=== PATIENT | female | born 1960 | race Caucasian/White ===

== ENCOUNTER 2020-11-19 14:27 | Outpatient (CLI) | payer BC | END 2020-11-19 23:59 | disposition home or self-care (01) | LOC: CARD DIAG 14:27 | PROVIDERS: ATTEND Student in an Organized Health Care Education/Training Program | DX: I35.1 Nonrheumatic aortic (valve) insufficiency (principal) | CPT/HCPCS: 93306 ==

== ENCOUNTER 2025-01-28 10:06 | Emergency (ER) | payer MEDICARE, MEDICAID ==
[~2025-01-28] VITALS: Ht 162.6 cm; Wt 75.0 kg
[2025-01-28 10:08] VITALS: BP 176/112; PULSE 77; RESP 16; O2SAT 98
--- NOTE | 2025-01-28 10:35 | RADIOLOGY REPORT ---
CLINICAL HISTORY: WRIST PAIN TECHNIQUE: 4 views of the right wrist were obtained. COMPARISON: None FINDINGS: There is mild linear sclerosis at the mid scaphoid bone. No soft tissue abnormality is evident. 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 IMPRESSION: Mild linear sclerosis at the mid scaphoid bone, which may represent a subacute fracture. Recommend fo llow-up radiographs in 7-10 days to reassess.
[2025-01-28] MEDS ORDERED: SULF1TAB49 PO (12:38)
--- NOTE | 2025-01-28 12:39 | Physician Documentation ---
History of Present Illness ~ Chief Complaint: Bite-animal Stated Complaint: DOG BITE Time Seen by MD: 12:10 Primary Medical Doctor: SCHOOLER Source: patient Mode of Arrival: POV Exam Limitations: no limitations HPI Patient was put yesterday by an unknown dog on the left and right thigh around 11:00 a.m.. Doc vaccination status is not up to date. Here for rabies treatment. Patient has a Muslim and refuses blood products. Tetanus within 5 years?: Yes Medication Reconciliation Allergies: Coded Allergies: Penicillins (Unverified Allergy, Unknown, 11/15/20) Scheduled Sulfamethoxazole/Trimethoprim (Bactrim Ds Tablet), 1 TAB PO Q12H Past Medical History Past Medical History: No Pertinent History Past Surgical History: no surgical history Smoking Status: Never smoker Alcohol Use: None Drug Use: none Review of Systems ROS Patient complains of dark by his for rabies treatment per [facility]. Otherwise, denies review of systems. Physical Exam Vital Signs: Temperature: 98.0, Source: Temporal, Heart Rate: 77, Respiratory Rate: 16, BP: 176/112, Pulse Oximetry: 98, Weight: 75.000 Pulse Oximetry Reflects: adequate oxygenation Physical Exam General: Awake, alert, oriented. No apparent distress Neck: Supple. Normal range of motion. No JVD Respiratory: Lungs are clear to auscultation bilaterally. No respiratory distress. Chest: Normal shape and size. No accessory muscle use. Cardiovascular: Regular rate and rhythm. S1-S2. No murmur, gallop, rub. Gastrointestinal: Abdomen is soft. Nontender to palpation. Bowel sounds present. Extremities: Left inner thigh has two wound. No bleeding. Right inner thigh with smaller wound. No active bleeding. No surrounding erythema. No purulent drainage. Neurologic: Alert and oriented x4. Nonfocal Psychiatric: Normal mood and affect. Skin: Normal color. Warm and dry. Progress Results/Orders Results/Orders Orders - SABA BECERRA [employer] DES[employer]ER Sulfamethox/Trimetho. Ds Tab (Septra Ds (01/28/25 12:30) Completed Orders - SABA BECERRA [employer] DES[employer]ER Rabies Vaccine (Pcec)/Pf (Rabavert Rabie (01/28/25 12:30) Tetanus/Pertuss/Diph Acell/Pf (Boostrix (01/28/25 12:30) Medications Received in ER Medications (Trade) Dose Ordered Sig/Ana Route PRN Reason Start Time Stop Time Status Last Admin Dose Admin (Rabavert Rabies Vaccine kit) 2.5 unit ONCE ONCE IMVAC 01/28/25 12:30 01/28/25 12:35 DC 01/28/25 13:19 2.5 UNIT (Boostrix vaccine syringe) 0.5 ml ONCE ONCE IMVAC 01/28/25 12:30 01/28/25 12:35 DC 01/28/25 12:49 0.5 ML (Septra DS tab) 1 tab ONCE ONCE PO 01/28/25 12:30 01/28/25 12:35 DC 01/28/25 12:49 1 TAB Vital Signs 01/28/25 01/28/25 10:08 13:31 Temp 98.0 98.0 Pulse 77 Resp 16 B/P (MAP) 176/112 Pulse Ox 98 Medical Decision Making Findings Patient his for a dog bite to the bilateral thighs sustained yesterday. After evaluation the high [facility] those determined that the vaccination status of the animal was delinquent and she was recommended to come to the emergency department for rabies treatment. Over the course of the evaluation it was determined that patient is a Muslim and will not take rabies immunoglobulin. She was willing to take the vaccine. She was also vaccinated for tetanus. There is no signs and symptoms of infection. No evidence of neurovascular injury. Pain is controlled. Given dog bite prophylactic antibiotics was provided. Departure Time of Disposition: 12:39 Disposition: HOME / SELF CARE / HOMELESS Impression: Primary Impression: Dog bite Qualified Codes: W54.0XXA - Bitten by dog, initial encounter Condition: Stable Discharge Instructions: Animal Bite, Adult Additional Instructions: Take antibiotics as prescribed to prevent infection related to this dog bite. As we discussed, you are not protected from rabies completely without the immunoglobulin which is a plasma products. The vaccine is not. Therefore, the vaccine series may be able to provide some level of protection but it is not complete. The vaccine schedule is today, day three, day 7 and day 14 Wound care may also help prevent rabies. Washing your wound with soap and water just after the bite may help. I am giving him antibiotics to help prevent infection related to your dog bite. Please take to completion. Return for vaccine schedule as above Return for new or worsening symptoms Referrals: NO PRIMARY CARE PROVIDER (PCP) Prescriptions Sulfamethoxazole/Trimethoprim (Bactrim Ds Tablet) 800 Mg-160 Mg Tablet 1 TAB PO Q12H for 5 Days, #9 TAB Prov: SABA BECERRA NP 01/28/25 Education Educated: Patient Educated regarding: diagnosis, treatment, need for follow up Signature Scribe Signature: No scribe Attestation: The note accurately reflects work and decisions made by me.Saba Becerra - ZAKI 01/28/25 19:36 This note was created with the assistance of voice recognition software whereby errors in grammar, syntax, and/or spelling may have occurred despite active proofreading efforts by the author. Please do not hesitate to contact the provider for clarification or for questions regarding the content of this document. SABA BECERRA NP Jan 28, 2025 12:39
[2025-01-28] MEDS: sulfamethoxazole/trimethoprim DS (800/160mg) tablet PO ONE (12:49)
[2025-01-28] MEDS: TETanus/Pertussis (Acell)/Diphther VAC/PF (Tdap-Adult) 0.5ml syringe IMVAC ONE (12:49)
[2025-01-28 13:31] VITALS: TEMP 98
== END 2025-01-28 13:33 | disposition home or self-care (01) ==
LOC: ER 10:07
DX: S71.151A Open bite, right thigh, initial encounter (principal); S71.152A Open bite, left thigh, initial encounter; Z88.0 Allergy status to penicillin; W54.0XXA Bitten by dog, initial encounter; Y93.89 Activity, other specified; Y92.89 Other specified places as the place of occurrence of the external cause; Y99.8 Other external cause status
CPT/HCPCS: 73110; 90471; 90472; 90675; 90715; 99284

== ENCOUNTER 2025-02-01 22:24 | Emergency (ER) | payer MEDICARE, MEDICAID ==
[~2025-02-01] VITALS: Ht 162.6 cm; Wt 75.4 kg
[~2025-02-01 22:24] MED LIST: SULF1TAB49 PO
[2025-02-01 22:43] VITALS: TEMP 98.6
--- NOTE | 2025-02-01 22:51 | Physician Documentation ---
History of Present Illness ~ General Stated Complaint: 2ND RABIES SHOT Time Seen by MD: 22:43 Primary Medical Doctor: SCHOOLER History of Present Illness Initial Comments Patient is seen today for her 2nd vaccination of rabies. Patient has no other concern or complaint at this time. Medication Reconciliation Allergies: Coded Allergies: Penicillins (Unverified Allergy, Unknown, 11/15/20) Scheduled Sulfamethoxazole/Trimethoprim (Bactrim Ds Tablet), 1 TAB PO Q12H Past Medical History Past Medical History: No Pertinent History Past Surgical History: no surgical history Alcohol Use: None Drug Use: none Review of Systems Constitutional: Denies: chills, fever, weakness Eyes: Denies: pain, blurred vision ENT: Denies: ear pain, nose pain, throat pain, mouth pain Respiratory: Denies: cough, shortness of breath Cardiovascular: Denies: chest pain, palpitations Gastrointestinal: Denies: abdominal pain, nausea, vomiting Genitourinary: Denies: burning, dysuria Female Genitalia: Denies: vaginal discharge, pelvic pain Neurological: Denies: headache, dizziness Musculoskeletal: Denies: pain, swelling Integumentary: Denies: rash, lesions Allergic/Immunologic: Denies: hives, itching Hematologic/Lymphatic: Denies: no symptoms reported Psychiatric: Denies: depression, anxiety Physical Exam Physical Exam Physical Exam General: Awake and Alert, no acute distress. HEENT: Conjunctiva pink, Sclera clear, Mucus Membranes moist. Neck: Supple without masses and tenderness. Resp: Unlabored. Lungs clear to auscultation bilaterally. Heart: Regular Rate and rhythm, normal S1 and S2 without murmur, rub or gallop. Extremities: No cyanosis,clubbing or edema. Skin: Warm and Dry. Medical Decision Making Findings Patient is seen today for her 2nd vaccination of rabies. Patient has no other concern or complaint at this time. Patient [place] Patient did receive her 2nd dose of rabies vaccination today. Patient will follow up on ThursdayFebruary 05 for her 3rd vaccination and then will follow up on the for her 4th vaccination which will complete the series. Departure Disposition: HOME / SELF CARE / HOMELESS Impression: Primary Impression: Dog bite Qualified Codes: W54.0XXD - Bitten by dog, subsequent encounter Condition: Improved Additional Instructions: Patient did receive her 2nd dose of rabies vaccination today. Patient will follow up on ThursdayFebruary 05 for her 3rd vaccination and then will follow up on the for her 4th vaccination which will complete the series. Referrals: NO PRIMARY CARE PROVIDER (PCP) Signature Scribe Signature: No scribe Attestation: No scribe KOKI DE LOS SANTOS PAC Feb 01, 2025 22:50
[2025-02-01 23:23] VITALS: BP 144/97; PULSE 80; RESP 16; O2SAT 94
== END 2025-02-01 23:24 | disposition home or self-care (01) ==
LOC: ER 22:25
DX: T14.8XXD Other injury of unspecified body region, subsequent encounter (principal); W54.0XXD Bitten by dog, subsequent encounter; Z88.0 Allergy status to penicillin
CPT/HCPCS: 90471; 90675; 99281

== ENCOUNTER 2025-02-05 21:57 | Emergency (ER) | payer MEDICARE, MEDICAID ==
[~2025-02-05] VITALS: Ht 162.6 cm; Wt 75.0 kg
[2025-02-05 22:05] VITALS: BP 149/109; PULSE 67; RESP 16; TEMP 97.8; O2SAT 97
--- NOTE | 2025-02-05 22:34 | Physician Documentation ---
HPI ~ General Chief Complaint: Medication Request Stated Complaint: RABIES VACCINE Time Seen by MD: 22:02 Primary Medical Doctor: SCHOOLER History of Present Illness HPI Comments 64 year old female here for 3rd rabies vaccine dose. Denies increasing pain/swelling, fevers. Medication Reconciliation Allergies: Coded Allergies: Penicillins (Verified Allergy, Unknown, 02/01/25) Discontinued Medications Sulfamethoxazole/Trimethoprim (Bactrim Ds Tablet), 1 TAB PO Q12H Discontinued Reason: Auto Discontinued Past Medical History Past Medical History: No Pertinent History Past Surgical History: no surgical history Alcohol Use: None Drug Use: none Review of Systems All Other Systems at this time: Reviewed and Negative Physical Exam Physical Exam Vital Signs: RN Vital Signs have been reviewed: Yes, Temperature: 97.8, Source: Temporal, Heart Rate: 67, Respiratory Rate: 16, BP: 149/109, Pulse Oximetry: 97, Weight: 75.000 Oxygen Flow Rate: 0 Physical Exam HEENT: PERRL, moist oral mucosa, EOMI Pulmonary: No respiratory distress MSK: no deformity Skin: w/d/i, no rash Neuro: alert, nonfocal Psych: normal affect Progress Results/Orders Results/Orders Completed Orders - ELI LORD MD Rabies Vaccine (Pcec)/Pf (Rabavert Rabie (02/05/25 22:05) Vital Signs 02/05/25 22:05 Temp 97.8 Pulse 67 Resp 16 B/P (MAP) 149/109 Pulse Ox 97 O2 Flow Rate 0 Departure Disposition: 01 HOME / SELF CARE / HOMELESS Impression: Primary Impression: Dog bite Condition: Stable Discharge Instructions: Medical Screening Exam Referrals: NO PRIMARY CARE PROVIDER (PCP) Education Educated: Patient Educated regarding: diagnosis, treatment, prognosis, need for follow up Signature Scribe Signature: . Attestation: . ELI LORD MD Feb 05, 2025 22:34
== END 2025-02-05 22:38 | disposition home or self-care (01) ==
LOC: ER 21:58
DX: S71.152D Open bite, left thigh, subsequent encounter (principal); S71.151D Open bite, right thigh, subsequent encounter; Z20.3 Contact with and (suspected) exposure to rabies; Z88.0 Allergy status to penicillin; W54.0XXD Bitten by dog, subsequent encounter
CPT/HCPCS: 90471; 90675; 99281